=== PATIENT | male | born 1955 | race African-American/Black ===

== ENCOUNTER 2017-12-04 16:47 | Emergency (ER) | payer SELFPAY ==
[~2017-12-04] VITALS: Ht 165.1 cm; Wt 90.7 kg
[2017-12-04 16:52] VITALS: Ht 165.1 cm; Wt 90.7 kg
[2017-12-04 18:11] LABS: BASOPHIL % 0.6 % (0-2); PLATELET COUNT 312 x10^3mcL (130-400)
[2017-12-04 18:14] LABS: RED CELL DISTRIBUTION WIDTH 16.4 % (11.5-14.5)
[2017-12-04 18:16] LABS: CALCIUM 8.6 mg/dL (8.5-10.1); CARBON DIOXIDE 26.9 mmol/L (21-32); CHLORIDE SERUM 105 mmol/L (98-107); GFR1 > 60 mL/min; GLUCOSE SERUM 119 mg/dL (74-106); SODIUM SERUM 141 mmol/L (136-145)
[2017-12-04 18:20] LABS: ALKALINE PHOSPHATASE 82 U/L (46-116); ALT/SGPT 21 U/L (16-63); AST/SGOT 15 U/L (15-37); BILIRUBIN TOTAL 0.17 mg/dL (0.20-1.00); TOTAL PROTEIN, SERUM 7.1 g/dL (6.4-8.2)
[2017-12-04 19:13] VITALS: BP 174/114
== END 2017-12-04 19:13 | disposition left against medical advice (07) ==
LOC: ED 16:47
PROVIDERS: Emergency Medicine Emergency Medical Services
DX: I87.8 Other specified disorders of veins (principal); L03.116 Cellulitis of left lower limb; L03.115 Cellulitis of right lower limb; I83.018 Varicose veins of right lower extremity with ulcer other part of lower leg; I83.028 Varicose veins of left lower extremity with ulcer other part of lower leg; I10 Essential (primary) hypertension; E11.9 Type 2 diabetes mellitus without complications; E78.00 Pure hypercholesterolemia, unspecified
CPT/HCPCS: 36415; 85378

== ENCOUNTER 2017-12-07 09:41 | Emergency (ER) | payer SELFPAY ==
[~2017-12-07] VITALS: Ht 182.9 cm; Wt 102.0 kg
[2017-12-07 09:44] VITALS: Ht 182.9 cm; Wt 102.0 kg
[2017-12-07 11:44] LABS: BASOPHIL % 0.5 % (0-2); PLATELET COUNT 314 x10^3mcL (130-400)
[2017-12-07 11:46] LABS: RED CELL DISTRIBUTION WIDTH 16.8 % (11.5-14.5)
[2017-12-07 11:47] VITALS: BP 185/85
[2017-12-07 12:10] LABS: CALCIUM 8.4 mg/dL (8.5-10.1); CARBON DIOXIDE 24.3 mmol/L (21-32); CHLORIDE SERUM 101 mmol/L (98-107); CREATININE SERUM 0.9 mg/dL (0.7-1.3); GFR1 > 60 mL/min; GLUCOSE SERUM 94 mg/dL (74-106); SODIUM SERUM 138 mmol/L (136-145)
[2017-12-07 12:14] LABS: ALKALINE PHOSPHATASE 83 U/L (46-116); ALT/SGPT 24 U/L (16-63); AST/SGOT 18 U/L (15-37); BILIRUBIN TOTAL 0.4 mg/dL (0.20-1.00); HDL CHOLESTEROL 55 mg/dL (40-60); LIPASE 121 IU/L (73-393); TOTAL PROTEIN, SERUM 7.4 g/dL (6.4-8.2); TRIGLYCERIDES 31 mg/dL (<150)
[2017-12-07 12:16] LABS: CHOLESTEROL 128 mg/dL (<200); CHOLESTEROL/HDL RATIO 2.3
== END 2017-12-07 11:47 | disposition left against medical advice (07) ==
LOC: ED 09:41
PROVIDERS: Specialist
DX: L03.116 Cellulitis of left lower limb (principal); L03.115 Cellulitis of right lower limb; I87.2 Venous insufficiency (chronic) (peripheral); R60.0 Localized edema; I10 Essential (primary) hypertension; E11.9 Type 2 diabetes mellitus without complications; E78.00 Pure hypercholesterolemia, unspecified
CPT/HCPCS: 36415; 83880; 84439